=== PATIENT | female | born 1995 | race African-American/Black ===

== ENCOUNTER → 2016-12-05 | Outpatient (CLI) | payer OTHER ==
[2016-12-05 18:35] LABS: URINE APPEARANCE CLEAR (CLEAR); URINE BILIRUBIN NEG (NEG); URINE COLOR DK YELLOW; URINE EPITHELIAL CELL AUTO >30 /lpf (0-5); URINE NITRITE NEG (NEG); URINE PH 7.5 (4.5-7.5); URINE SPECIFIC GRAVITY 1.032 (1.000-1.030); UROBILINOGEN NEG (NEG)
[2016-12-05 18:41] LABS: MANUAL MICROSCOPIC REQUIRED? NO; REVIEW REQ? NO
== END | disposition home or self-care (01) ==
LOC: C.LABSPEC 16:09
PROVIDERS: ATTEND Obstetrics & Gynecology
DX: Z34.00 Encounter for supervision of normal first pregnancy, unspecified trimester (principal)

== ENCOUNTER → 2016-12-09 | Outpatient (CLI) | payer OTHER ==
[2016-12-09 14:36] LABS: BASO % 0.3 %; BASO ABS # 0.03 K/uL (0-0.2); COMPLETE YES; EOS % 2.5 %; HEMATOCRIT 34.3 % (37-47); IG% 0.2 %; LYMPH % 27.1 %; LYMPH ABS # 2.36 K/uL (1.2-3.4); MEAN CELL VOLUME 76.1 fL (80-100); MEAN CORPUSCULAR HEMOGLOBIN 24.6 pg (25-34); MEAN CORPUSCULAR HGB CONC 32.4 g/dl (32-36); MEAN PLATELET VOLUME 10.6 fL (7.4-10.4); MONO % 5.7 %; NEUT % 64.2 %; PLATELET COUNT 304 K/uL (130-400); RED BLOOD COUNT 4.51 M/uL (4.2-5.4); WHITE BLOOD COUNT 8.71 K/uL (4.8-10.8)
== END | disposition home or self-care (01) ==
LOC: C.LAB1850 12:49
PROVIDERS: ATTEND Obstetrics & Gynecology
DX: Z34.00 Encounter for supervision of normal first pregnancy, unspecified trimester (principal)

== ENCOUNTER → 2017-04-15 | Outpatient (CLI) | payer OTHER ==
[~2017-04-15] MED LIST: PRENTAB26 PO
== END | disposition home or self-care (01) ==
LOC: C.LAB1850 16:09
PROVIDERS: ATTEND Obstetrics & Gynecology
DX: O09.299 Supervision of pregnancy with other poor reproductive or obstetric history, unspecified trimester (principal); Z3A.00 Weeks of gestation of pregnancy not specified

== ENCOUNTER → 2017-04-21 | Outpatient (CLI) | payer OTHER | END | disposition home or self-care (01) | LOC: C.LAB1850 11:39 | PROVIDERS: ATTEND Obstetrics & Gynecology | DX: O09.299 Supervision of pregnancy with other poor reproductive or obstetric history, unspecified trimester (principal) ==

== ENCOUNTER → 2017-04-27 | Outpatient (CLI) | payer OTHER ==
[2017-04-27 15:01] LABS: URINE APPEARANCE CLEAR (CLEAR); URINE BILIRUBIN NEG (NEG); URINE COLOR DK YELLOW; URINE EPITHELIAL CELL AUTO >30 /lpf (0-5); URINE NITRITE NEG (NEG); URINE PH 7.5 (4.5-7.5); URINE SPECIFIC GRAVITY 1.025 (1.000-1.030); UROBILINOGEN NEG (NEG)
[2017-04-27 15:06] LABS: MANUAL MICROSCOPIC REQUIRED? NO; REVIEW REQ? NO
== END | disposition home or self-care (01) ==
LOC: C.LABSPEC 14:17
PROVIDERS: ATTEND Obstetrics & Gynecology
DX: O09.299 Supervision of pregnancy with other poor reproductive or obstetric history, unspecified trimester (principal); Z3A.00 Weeks of gestation of pregnancy not specified

== ENCOUNTER → 2017-04-30 | Outpatient (CLI) | payer OTHER | END | disposition home or self-care (01) | LOC: C.LABSPEC 17:41 | PROVIDERS: ATTEND Obstetrics & Gynecology | DX: O09.299 Supervision of pregnancy with other poor reproductive or obstetric history, unspecified trimester (principal) ==

== ENCOUNTER → 2017-06-03 | Outpatient (CLI) | payer OTHER ==
[2017-06-03 16:15] LABS: BASO % 0.2 %; BASO ABS # 0.02 K/uL (0-0.2); COMPLETE YES; EOS % 2.6 %; HEMATOCRIT 34.4 % (37-47); IG% 0.3 %; LYMPH % 22.9 %; LYMPH ABS # 2.32 K/uL (1.2-3.4); MEAN CELL VOLUME 81.5 fL (80-100); MEAN CORPUSCULAR HEMOGLOBIN 27.5 pg (25-34); MEAN CORPUSCULAR HGB CONC 33.7 g/dl (32-36); MEAN PLATELET VOLUME 11.1 fL (7.4-10.4); MONO % 5.1 %; NEUT % 68.9 %; PLATELET COUNT 251 K/uL (130-400); RED BLOOD COUNT 4.22 M/uL (4.2-5.4); WHITE BLOOD COUNT 10.11 K/uL (4.8-10.8)
--- NOTE | 2017-06-12 08:39 | CODING QUERY NO DIAGNOSIS ---
TREATMENT RENDERED WITHOUT A DIAGNOSIS : 1995 To promote full compliance with coding requirements relating to patient care, physician participation is requested in all cases of field sales agent uncertainty. Please assist us with providing a diagnosis/symptom for the test(s) below: A diagnosis/symptom was not documented on your Order. A valid diagnosis/symptom is required to bill all insurances. Please remember that we are unable to code a diagnosis of rule out, probable, possible, questionable, or suspected. Tests that require a diagnosis: DOS: 06/03/17 * CBC WITH AUTO DIFFER DIAGNOSIS: * HEPATITIS B SURFACE A DIAGNOSIS: * HIV 4THGEN (HIV1,2_ DIAGNOSIS: * RUBELLA SCREEN IGG DIAGNOSIS: * RAPID PLASMA REAGIN DIAGNOSIS: * TYPE & SCREEN DIAGNOSIS: Provider Signature: Date: Thank you Andie Shi Health Information Management Once completed, please kindly fax back to [phone] For questions please call [phone]
== END | disposition home or self-care (01) ==
LOC: C.LAB1850 14:28
PROVIDERS: ATTEND Obstetrics & Gynecology
DX: O09.299 Supervision of pregnancy with other poor reproductive or obstetric history, unspecified trimester (principal)

== ENCOUNTER → 2017-07-03 | Outpatient (CLI) | payer OTHER ==
[2017-07-03 14:30] LABS: GTGD 50 Grams
== END | disposition home or self-care (01) ==
LOC: C.LAB1850 11:48
PROVIDERS: ATTEND Obstetrics & Gynecology
DX: Z36 Encounter for antenatal screening of mother (principal)

== ENCOUNTER 2017-08-12 17:32 | Emergency (ER) | payer OTHER ==
[~2017-08-12] VITALS: Ht 162.6 cm; Wt 94.3 kg
[2017-08-12 17:36] VITALS: TEMP 37; Ht 162.6 cm; Wt 94.3 kg
[2017-08-12] MEDS ORDERED: SODIUM CHLORIDE 0.9% 1000ML 1,000 ML IV ONE (17:47)
[2017-08-12] MEDS ORDERED: SODIUM CHLORIDE 0.9% 1000ML 1,000 ML IV STA (17:47)
--- NOTE | 2017-08-12 17:49 | EMERGENCY ROOM VISIT NOTE ---
History Report prepared by Yudith: Dick La Under the Supervision of: Dr. Raudel Perez M.D. First contact with patient: 17:42 Chief Complaint: CARDIAC ASSESSMENT Stated Complaint: SOB, CHEST PAIN, 5 MONTHS History of Present Illness The patient is a 22 year old female who presents to the Emergency Room with complaints of an ache-like centralized chest pain that began this morning. At rest, her pain is 7/10 in severity. Her pain is exacerbated with breathing. She is short of breath secondary to this. She also is having a cough. She denies any fevers. She is 5 months currently. She drove to [employer] last week and back to [place] this morning. She denies any leg pain or swelling. She denies any vaginal bleeding. She had a miscarriage earlier this year, and this is her second . Source of History: patient Onset: this morning Position: chest Symptom Intensity: 7/10 Quality: ache Timing: constant Modifying Factors (Worsening): breathing Associated Symptoms: + cough, + SOB, No fevers Review of Systems See HPI for pertinent positives & negatives. A total of 10 systems reviewed and were otherwise negative. Past Medical & Surgical Medical Problems: (1) Miscarriage Old medical records were reviewed. Nurse's notes were reviewed and I agree with. Denies history of PE/blood clots This is her second . The first had a miscarriage. No history of ectopics Family History Patient reports no known family medical history. Social History Smoking Status: Never Smoker Smokeless Tobacco Use: No Alcohol Use: none Drug Use: none Marital Status: single Occupation Status: student Current/Historical Medications Scheduled Multivit/Min/Iron/Fol Ac/Pren ( Vitamin), 1 TAB PO DAILY Allergies Coded Allergies: No Known Allergies (Unverified , 08/12/17) Physical Exam Vital Signs Date Time Temp Pulse Resp B/P (MAP) Pulse Ox O2 Delivery O2 Flow Rate FiO2 08/13/17 01:01 76 16 126/72 99 08/13/17 00:02 90 18 118/72 99 Room Air 08/12/17 22:27 91 18 120/71 100 Room Air 08/12/17 20:45 112 20 124/72 08/12/17 20:40 117 20 08/12/17 19:55 105 20 100 08/12/17 19:50 100 20 125/69 100 08/12/17 19:00 101 26 100 08/12/17 18:33 102 24 123/76 96 08/12/17 17:56 106 08/12/17 17:36 37.0 110 18 112/68 98 Room Air Physical Exam General: Non-ill appearing young female in no acute distress. HEENT: Normal cephalic atraumatic. Pupils are equal round and reactive to light. Extraocular movements are intact. Oropharynx is pink with moist mucous membranes. No swelling of the mouth lips or tongue. Neck: Supple with a midline trachea. No meningeal signs or stiffness, no JVD or bruits. No Stridor. Chest: Clear to auscultation bilaterally. No wheezes or rhonchi. No increased work of breathing. Heart: regular rate and rhythm. Abdomen: Soft nontender, nondistended without rebound guarding or rigidity. Extremities: No cyanosis clubbing or edema. No calf tenderness or assymetry Spine/Back. Non tender to palpation. No CVA tenderness Skin: Good turgor without rashes. Neurologic exam: Cranial nerves two through 12 are intact. Motor and sensation are intact and symmetrical throughout. Medical Decision & Procedures ER Provider Diagnostic Interpretation: Radiology results as stated below per my review and radiologist interpretation: CHEST ONE VIEW PORTABLE CLINICAL HISTORY: Chest pain. COMPARISON STUDY: No previous studies for comparison. TECHNIQUE: The mid to lower abdomen and pelvis were double shielded due to . Portable upright AP chest radiograph was obtained. FINDINGS: Lung volumes are at the lower limits of normal. There is no consolidation. No pneumothorax or pleural effusion is present. Pulmonary vascularity is normal. Cardiomediastinal silhouette is normal. There may be a right azygos fissure. IMPRESSION: No acute cardiopulmonary findings. Electronically signed by: Jourdan Yuan M.D. 08/12/2017 7:20 PM Dictated Date/Time: 08/12/2017 7:18 PM BILATERAL LOWER EXTREMITY VENOUS DOPPLER CLINICAL HISTORY: Shortness of breath, chest pain and . Elevated d-dimer. COMPARISON STUDY: No previous studies for comparison. TECHNIQUE: Sonography of the deep venous system of the bilateral lower extremities was performed. Compression and augmentation were evaluated. FINDINGS: The bilateral common femoral, superficial femoral and popliteal veins were compressible. Augmentation was normal. Flow was shown within the deep calf vessels. IMPRESSION: No evidence of deep venous thrombus within the bilateral lower extremities. Electronically signed by: Jourdan Yuan M.D. 08/12/2017 9:59 PM Dictated Date/Time: 08/12/2017 9:[address]: As per stat read. No definite PE seen Laboratory Results 08/12/17 18:20 Red Blood Count 4.15, Mean Corpuscular Volume 84.8, Mean Corpuscular Hemoglobin 29.2, Mean Corpuscular Hemoglobin Concent 34.4, Mean Platelet Volume 10.8, Neutrophils (%) (Auto) 89.9, Lymphocytes (%) (Auto) 4.9, Monocytes (%) (Auto) 4.5, Eosinophils (%) (Auto) 0.2, Basophils (%) (Auto) 0.1, Neutrophils # (Auto) 21.40, Lymphocytes # (Auto) 1.17, Monocytes # (Auto) 1.06, Eosinophils # (Auto) 0.04, Basophils # (Auto) 0.02 08/12/17 18:03 Test 08/12/17 18:03 08/12/17 18:20 Anion Gap 11.0 mmol/L (3-11) Est Creatinine Clear Calc Drug Dose 194.4 ml/min Estimated GFR () > 150.0 Estimated GFR (Non- 137.5 BUN/Creatinine Ratio 10.6 (10-20) Calcium Level 8.7 mg/dl (8.5-10.1) Total Bilirubin 0.3 mg/dl (0.2-1) Direct Bilirubin < 0.1 mg/dl (0-0.2) Aspartate Amino Transf (AST/SGOT) 13 U/L (15-37) Alanine Aminotransferase (ALT/SGPT) 18 U/L (12-78) Alkaline Phosphatase 74 U/L (45-117) Total Creatine Kinase 55 U/L (26-192) Creatine Kinase MB < 0.5 ng/ml (0.5-3.6) Creatine Kinase MB Ratio (0-3.0) Total Protein 8.2 gm/dl (6.4-8.2) Albumin 3.2 gm/dl (3.4-5.0) Lipase 61 U/L (73-393) White Blood Count 23.79 K/uL (4.8-10.8) Red Blood Count 4.15 M/uL (4.2-5.4) Hemoglobin 12.1 g/dL (12.0-16.0) Hematocrit 35.2 % (37-47) Mean Corpuscular Volume 84.8 fL (80-100) Mean Corpuscular Hemoglobin 29.2 pg (25-34) Mean Corpuscular Hemoglobin Concent 34.4 g/dl (32-36) Platelet Count 230 K/uL (130-400) Mean Platelet Volume 10.8 fL (7.4-10.4) Neutrophils (%) (Auto) 89.9 % Lymphocytes (%) (Auto) 4.9 % Monocytes (%) (Auto) 4.5 % Eosinophils (%) (Auto) 0.2 % Basophils (%) (Auto) 0.1 % Neutrophils # (Auto) 21.40 K/uL (1.4-6.5) Lymphocytes # (Auto) 1.17 K/uL (1.2-3.4) Monocytes # (Auto) 1.06 K/uL (0.11-0.59) Eosinophils # (Auto) 0.04 K/uL (0-0.5) Basophils # (Auto) 0.02 K/uL (0-0.2) RDW Standard Deviation 41.8 fL (36.4-46.3) RDW Coefficient of Variation 13.8 % (11.5-14.5) Immature Granulocyte % (Auto) 0.4 % Immature Granulocyte # (Auto) 0.10 K/uL (0.00-0.02) Prothrombin Time 10.5 SECONDS (9.0-12.0) Prothromb Time International Ratio 1.0 (0.9-1.1) Activated Partial Thromboplast Time 31.8 SECONDS (21.0-31.0) Partial Thromboplastin Ratio 1.2 D-Dimer 640 ug/L FEU (0-500) Troponin I < 0.015 ng/ml (0-0.045) Laboratory studies as stated above per my review. Medications Administered Medications (Trade) Dose Ordered Sig/Jostin Route Start Time Stop Time Status Last Admin Dose Admin Sodium Chloride 1,000 ml @ 999 mls/hr Q1H1M STAT IV 08/12/17 17:47 08/12/17 18:47 DC 08/12/17 18:29 999 MLS/HR Sodium Chloride 1,000 ml @ 150 mls/hr Q6H40M ONCE IV 08/12/17 17:47 08/13/17 00:26 DC 08/12/17 17:47 150 MLS/HR ECG Indication: SOB/dyspnea Rate (beats per minute): 109 Rhythm: sinus tachycardia Findings: no acute ischemic change, other (Non specific t-wave abnormality) Comparison ECG Date: no prior available ED Course 1741: Past medical records reviewed. The patient was evaluated in room C11B, and a complete history and physical examination were performed. 1746: Ordered Sodium Chloride 1000 ml @ 150 mls/hr IV, Sodium Chloride 1000 ml @ 999 mls/hr IV 1829: She just got her IV placed. 1906: The patient is comfortable and denies having any fever or cough. 2113: She was able to eat and waiting for her US. Medical Decision Differentials include, but are not limited to; cardiac disease, arrhythmia, musculoskeletal pain, PE, GERD, and related complication. This patient comes in as described above. She was placed in room C 11. She is here for treatment evaluation chest pain shortness breath .she is . on exam she is reproducibly tender. EKG was obtained. IV access established and she was hydrated with IV normal saline. Multiple blood testing was obtained. She was reassessed frequently. EKG does not suggest acute coronary syndrome or arrhythmia. I did a chest x-ray with her abdomen shielded and it was negative. Her white count was elevated 23,000 however she is afebrile and has had no cough. Her pain is reproducible. She has no cramping or anything to suggest or abdominal problems. She's had no acute electrolyte or metabolic abnormalities. Her d-dimer was elevated and light of this I did an ultrasound of her legs it was negative. I extended risks and the benefits and we did a CAT scan with her abdomen shielded. This shows evidence of acute PE. She appears comfortable and she did eat a meal while she was here. Her pain is definitely reproducible. Although her white count is elevated, she has no evidence to suggest infection in her chest or anywhere else. She's had no cough she has no urinary symptoms. She has no headache. She has normal heart tone. She's nothing to suggest a related complication. She she can use acetaminophen but do not exceed 2 pills every 6 hours and do not take more than the [id number] recommended dosage. She asked for something for her breathing and seems like it is mostly painful she did take an inhaler as a child she has no wheezing but I did give her albuterol inhaler that she can use if needed. At this point, there is no evidence suggest PE or pneumonia or pneumothorax. I did encourage close follow-up. She should return if: increasing pain, worsening symptoms, shortness of breath, any new problems concerns. She was happy the plan and discharged to home. Medication Reconcilliation Current Medication List: was personally reviewed by me Blood Pressure Screening Patient's blood pressure: Normal blood pressure Blood pressure disposition: Did not require urgent referral Impression Primary Impression: Chest pain, precordial Additional Impression: Scribe Attestation The scribe's documentation has been prepared under my direction and personally reviewed by me in its entirety. I confirm that the note above accurately reflects all work, treatment, procedures, and medical decision making performed by me. Departure Information Dispostion Home / Self-Care Referrals No Doctor, Assigned (PCP) Patient Instructions My [facility] Problem Qualifiers
[2017-08-12] MEDS ORDERED: PRENTAB26 PO (18:32)
[2017-08-12 18:42] LABS: ALKALINE PHOSPHATASE 74 U/L (45-117); ALT/SGPT 18 U/L (12-78); AST/SGOT 13 U/L (15-37); BLOOD UREA NITROGEN 5 mg/dl (7-18); BUN/CREATININE RATIO 10.6 (10-20); CALCIUM 8.7 mg/dl (8.5-10.1); CARBON DIOXIDE 19 mmol/L (21-32); CHLORIDE 104 mmol/L (98-107); CREATININE 0.51 mg/dl (0.60-1.20); GLUCOSE 69 mg/dl (70-99); POTASSIUM 3.8 mmol/L (3.5-5.1); SODIUM 134 mmol/L (136-145)
[2017-08-12 18:44] LABS: HEMATOCRIT 35.2 % (37-47); MEAN CELL VOLUME 84.8 fL (80-100); MEAN CORPUSCULAR HEMOGLOBIN 29.2 pg (25-34); MEAN CORPUSCULAR HGB CONC 34.4 g/dl (32-36); MEAN PLATELET VOLUME 10.8 fL (7.4-10.4); PLATELET COUNT 230 K/uL (130-400); RED BLOOD COUNT 4.15 M/uL (4.2-5.4); WHITE BLOOD COUNT 23.79 K/uL (4.8-10.8)
[2017-08-12 19:05] LABS: BASO % 0.1 %; BASO ABS # 0.02 K/uL (0-0.2); COMPLETE YES; EOS % 0.2 %; IG% 0.4 %; LYMPH % 4.9 %; LYMPH ABS # 1.17 K/uL (1.2-3.4); MONO % 4.5 %; NEUT % 89.9 %
[2017-08-12 19:06] LABS: PARTIAL THROMBOPLASTIN RATIO 1.2; PROTHROMBIN TIME (PATIENT) 10.5 SECONDS (9.0-12.0)
--- NOTE | 2017-08-12 19:21 | DIAGNOSTIC IMAGING REPORT ---
CHEST ONE VIEW PORTABLE CLINICAL HISTORY: Chest pain. COMPARISON STUDY: No previous studies for comparison. TECHNIQUE: The mid to lower abdomen and pelvis were double shielded due to . Portable upright AP chest radiograph was obtained. FINDINGS: Lung volumes are at the lower limits of normal. There is no consolidation. No pneumothorax or pleural effusion is present. Pulmonary vascularity is normal. Cardiomediastinal silhouette is normal. There may be a right azygos fissure. IMPRESSION: No acute cardiopulmonary findings. Electronically signed by: Jourdan Yuan M.D. 08/12/2017 7:20 PM Dictated Date/Time: 08/12/2017 7:18 PM
--- NOTE | 2017-08-12 22:01 | DIAGNOSTIC IMAGING REPORT ---
BILATERAL LOWER EXTREMITY VENOUS DOPPLER CLINICAL HISTORY: Shortness of breath, chest pain and . Elevated d-dimer. COMPARISON STUDY: No previous studies for comparison. TECHNIQUE: Sonography of the deep venous system of the bilateral lower extremities was performed. Compression and augmentation were evaluated. FINDINGS: The bilateral common femoral, superficial femoral and popliteal veins were compressible. Augmentation was normal. Flow was shown within the deep calf vessels. IMPRESSION: No evidence of deep venous thrombus within the bilateral lower extremities. Electronically signed by: Jourdan Yaun M.D. 08/12/2017 9:59 PM Dictated Date/Time: 08/12/2017 9:59 PM
[2017-08-12] MEDS ORDERED: OPTIRAY 320 IV PRN (23:00)
[2017-08-13] MEDS ORDERED: ALBUTEROL HFA 8 GM INHALER INH ONE ×2 (00:59→01:15)
[2017-08-13 01:01] VITALS: BP 126/72; PULSE 76; O2SAT 99
--- NOTE | 2017-08-13 06:40 | DIAGNOSTIC IMAGING REPORT ---
CT ANGIOGRAM OF THE CHEST CLINICAL HISTORY: Atypical chest pain, shortness of breath. Elevated d-dimer. COMPARISON STUDY: Chest x-ray dated to 1117 TECHNIQUE: Following the IV administration of 92 mL of [id number]-320, CT angiogram of the thorax was performed from the thoracic inlet to the lung bases utilizing the pulmonary embolus protocol. Images are reviewed in the axial, sagittal, and coronal planes. IV contrast was administered without complication. MIP imaging was performed. A dose lowering technique was utilized adhering to the principles of ALARA. CT DOSE: 393.90 mGy.cm FINDINGS: Axillary lymph nodes are the upper limits of normal in size. There is no pathologic mediastinal or hilar lymphadenopathy There was no evidence of thoracic aortic dilatation. There were no pulmonary artery filling defects to indicate acute pulmonary embolism. No pleural effusions are visualized. There was no evidence of focal pulmonary consolidation. IMPRESSION: No acute intrathoracic findings. No CT evidence of acute pulmonary embolism. No evidence of focal pulmonary consolidation. Electronically signed by: Igor Spangler M.D. 08/13/2017 6:39 AM Dictated Date/Time: 08/13/2017 6:36 AM
== END 2017-08-13 01:02 | disposition home or self-care (01) ==
LOC: C.EDB 17:34 → C.EDC 08-13 01:02
DX: R07.2 Precordial pain (principal); R00.0 Tachycardia, unspecified; Z33.1 Pregnant state, incidental

== ENCOUNTER → 2017-09-28 | Outpatient (CLI) | payer OTHER ==
[2017-09-28 18:01] LABS: HEMATOCRIT 34.2 % (37-47)
[2017-09-28 18:29] LABS: GTGD 50 Grams
[2017-09-28 18:39] LABS: MANUAL MICROSCOPIC REQUIRED? NO; REVIEW REQ? NO; URINE APPEARANCE CLEAR (CLEAR); URINE BILIRUBIN NEG (NEG); URINE COLOR YELLOW; URINE EPITHELIAL CELL AUTO >30 /lpf (0-5); URINE NITRITE NEG (NEG); URINE PH 6.5 (4.5-7.5); URINE SPECIFIC GRAVITY 1.026 (1.000-1.030); UROBILINOGEN NEG (NEG)
== END | disposition home or self-care (01) ==
LOC: C.LAB1850 16:55
PROVIDERS: ATTEND Obstetrics & Gynecology
DX: O09.293 Supervision of pregnancy with other poor reproductive or obstetric history, third trimester (principal); Z3A.00 Weeks of gestation of pregnancy not specified